=== PATIENT | female | born 1995 | race Caucasian/White ===

== ENCOUNTER 2021-04-26 19:11 | Emergency (ER) | payer OTHER, SELFPAY ==
--- NOTE | ~2021-04-26 | XR_ITS ---
EXAMINATION: XR chest 2V EXAM DATE: 04/26/2021 19:52 INDICATION: Tachycardia and high blood pressure. TECHNIQUE: Frontal and lateral projections of the chest obtained and reviewed. There is no prior shayan dy for comparison. FINDINGS: The lungs are clear. There are no pleural effusions. The cardiomediastinal silhouette is within normal limits. There is no pneumothorax suspected. The bones and soft tissues are unremarkab le. IMPRESSION: No acute cardiopulmonary findings. Reviewed, dictated and finalized at location A.
[2021-04-26 19:16] VITALS: BP 146/108; PULSE 129; RESP 18; TEMP 36.8; O2SAT 100
--- NOTE | 2021-04-26 19:21 | ECG_ITS ---
Measurements Intervals [place] Rate: 99 P: 12 ID: 150 QRS: -4 QRSD: 99 T: 7 QT: 348 QTc: 448 Interpretive Statements SINUS RHYTHM DELAYED PRECORDIAL R/S TRANSITION VOLTAGE CRITERIA FOR LVH MINIMAL Q WAVES- HIGH LATERAL LEADS BORDERLINE T WAVE ABNORMALITY- INFERIOR LEADS BASELINE ARTIFACT- I, II, V3 BORDERLINE ECG Electronically Signed On 04-26-2021 20:18:22 CDT by Dov Valenzuela D.O.
[2021-04-26 19:48] LABS: Basophils Percent Auto 0.3 % (0.2-1.2); Eosinophils Absolute Auto 0.1 K/mm3 (0-0.3); Eosinophils Percent Auto 0.9 % (0-4.4); Hematocrit 40.6 % (37.0-47.0); Hemoglobin 13.4 g/dL (12.0-15.0); Immature Granulocyte Absolute 0.02 K/mm3 (0.00-0.031); Immature Granulocyte Percent A 0.2 % (0-0.5); Lymphocytes Absolute Auto 3.58 K/mm3 (0.9-3.2); Lymphocytes Percent Auto 36.3 % (18.3-44.2); Mean Corpuscular Hemoglobin 29.6 pg (26-34); Mean Corpuscular Volume 89.6 fl (80-100); Mean Platelet Volume 11.5 fl (7.4-10.4); Monocytes Absolute Auto 0.5 K/mm3 (0.1-0.6); Monocytes Percent Auto 5.4 % (2.6-8.5); Neutrophils Absolute Auto 5.6 K/mm3 (1.3-6.7); Neutrophils Percent Auto 56.9 % (45.5-73.1); Platelet Count Result 298 k/mm3 (150-375); Red Blood Count 4.53 M/mm3 (4.2-5.4); Red Cell Distribution Width 12.3 % (11.5-14.5); White Blood Count 9.9 K/mm3 (4.5-10.0)
[2021-04-26 20:00] LABS: Anion Gap 9 mmol/L (8-16); Blood Urea Nitrogen 11 mg/dL (7-17); Calcium 9.6 mg/dL (8.4-10.2); Carbon Dioxide 24 mmol/L (22-30); Chloride 105 mmol/L (98-107); Estimated CRCL calculation 125 ml/min; Estimated Glomerular Filt Rate > 60; Glucose 87 mg/dL (65-110); Potassium 3.6 mmol/L (3.4-5.0); Sodium 138 mmol/L (137-145)
[2021-04-26 20:01] LABS: Atypical Lymphocytes Present; INR 0.9; Platelet Estimate Adequate (Adequate); Prothrombin Time 12.3 Seconds (11.1-14.7)
[2021-04-26 20:02] LABS: Partial Thromboplastin Time 26.6 SECONDS (22.3-36.8)
[2021-04-26 20:12] LABS: Troponin I < 0.012 ng/mL (0.000-0.034)
--- NOTE | 2021-04-26 21:59 | ED.GENADULT ---
HPI - General Adult General Chief complaint: Unspecified Stated complaint: high blood pressure Time Seen by Provider: 04/26/21 21:41 Source: patient, family and RN notes reviewed Mode of arrival: ambulatory Limitations: no limitations History of Present Illness HPI narrative: Patient is a 25-year-old female who presents to emergency department for evaluation of elevated blood pressure noticed at work today patient felt tingly lightheaded found to have elevated blood pressure and heart rate upon returning home purchased a blood pressure monitor and thought that her blood pressures were still increased patient notes that when she had the tingling and palpitations she felt very anxious. Patient denies any pertinent past medical history or other problems and on arrival is in the room in no distress resting comfortably Related Data Allergies Allergy/AdvReac Type Severity Reaction Status Date / Time amoxicillin [From Augmentin] Allergy Intermediate Chest Pain Verified 04/26/21 19:22 clavulanic acid Allergy Intermediate Chest Pain Verified 04/26/21 19:22 [From Augmentin] Review of Systems Review of Systems: All systems reviewed & are unremarkable except as noted in HPI and below PMFSH Social History Social History (Updated 04/26/21 @ 22:02 by Bob Michael PA-C) Smoking status: Never smoker Exam Narrative: Exam Narrative: GENERAL: Well-appearing, well-nourished, and in no acute distress. HEAD: Normocephalic, atraumatic. EYES: PERRLA and EOMI. ENT: Nares clear, no rhinorrhea or epistaxis. Mucous membranes moist. CHEST: Clear to auscultation. No respiratory distress. No wheezes rales or rhonchi HEART: Regular rate and rhythm. No murmur heard. Normal peripheral pulses. EXTREMITIES: Normal range of motion. No edema. SKIN: Warm, dry, no rash. NEURO: No focal deficits. Alert and oriented x3. Cranial nerves II through XII grossly intact PSYCH: Normal mood and affect. Course Course Emergency Course: Patient in the room in no distress aware of case findings treatment plan and diagnosis agreeing to follow-up as instructed or to return if symptoms worsen or concerns patient is afebrile nontoxic-appearing no distress felt appropriate for outpatient reevaluation ABCs and vital signs intact and stable Vital Signs Vital signs: Vital Signs Temperature 98.2 F 04/26/21 19:16 Pulse Rate 129 H 04/26/21 19:16 Respiratory Rate 18 04/26/21 19:16 Blood Pressure 146/108 H 04/26/21 19:16 Pulse Oximetry 100 04/26/21 19:16 Temperature 98.2 F 04/26/21 19:16 Pulse Rate 129 H 04/26/21 19:16 Respiratory Rate 18 04/26/21 19:16 Blood Pressure 146/108 H 04/26/21 19:16 Pulse Oximetry 100 04/26/21 19:16 Medical Decision Making MDM Narrative Medical decision making narrative: Patient in the room no distress aware of case findings treatment plan diagnosis agreeing to follow-up as instructed or to return if symptoms worsen or concerns patient is afebrile nontoxic-appearing no distress felt appropriate for outpatient reevaluation Vital Signs Vital Signs: Vital Signs Temperature 98.2 F 04/26/21 19:16 Pulse Rate 129 H 04/26/21 19:16 Respiratory Rate 18 04/26/21 19:16 Blood Pressure 146/108 H 04/26/21 19:16 Pulse Oximetry 100 04/26/21 19:16 Temperature 98.2 F 04/26/21 19:16 Pulse Rate 129 H 04/26/21 19:16 Respiratory Rate 18 04/26/21 19:16 Blood Pressure 146/108 H 04/26/21 19:16 Pulse Oximetry 100 04/26/21 19:16 Lab Data Result diagrams: 04/26/21 19:31 04/26/21 19:31 Labs: Lab Results 04/26/21 04/26/21 04/26/21 Range/Units 19:31 19:31 19:31 WBC 9.9 (4.5-10.0) K/mm3 RBC 4.53 (4.2-5.4) M/mm3 Hgb 13.4 (12.0-15.0) g/dL Hct 40.6 (37.0-47.0) % MCV 89.6 (80-100) fl MCH 29.6 (26-34) pg MCHC 33.0 (32-36) g/dl RDW 12.3 (11.5-14.5) % Plt Count 298 (150-375) k/mm3 MPV 11.5 H (7.4-10.4) fl [place]
[2021-04-26 22:30] VITALS: BP 157/90; PULSE 88; RESP 18; O2SAT 100
== END 2021-04-26 22:31 | disposition home or self-care (01) ==
PROVIDERS: Emergency Provider Emergency Medicine; PCP Internal Medicine
DX: R03.0 Elevated blood-pressure reading, without diagnosis of hypertension (principal); R00.2 Palpitations; R20.2 Paresthesia of skin
CPT/HCPCS: 36415; 71046; 80048; 84484; 85025; 85610; 85730; 93005; 99284